=== PATIENT | male | born 1990 | race African-American/Black ===

== ENCOUNTER 2018-01-13 20:09 | Emergency (ER) | payer OTHER ==
--- NOTE | 2018-01-13 20:59 | RAD REPORT ---
EXAM DESCRIPTION: RAD - Knee Left 3 View - 01/13/2018 8:49 pm CLINICAL HISTORY: PAIN COMPARISON: Knee Left 3 view dated 01/09/2015 FINDINGS: No bone or joint abnormality the left knee is detected. If clinical concern for internal d erangement persists, suggest MR imaging followup.
--- NOTE | 2018-01-13 21:05 | EDPHYS ---
Physician Documentation [facility] Name: Jacques Longoria Age: 27 yrs Sex: Male : 1990 Arrival Date: 01/13/2018 Time: 20:15 Bed Treatment Private MD: Elizabeth Johnson H ED Physician Jose Roberto Medina HPI: 01/13 21:11 This 27 yrs old Black Male presents to ER via Ambulatory with complaints of Knee Injury.snw 21:11 Onset: The symptoms/episode began/occurred suddenly. The patient has not experienced snw similar symptoms in the past. The patient has not recently seen a physician. Playing soccer and felt a pop and then pain to medial and posterior left knee, feels like it may give out. Historical: - Allergies: 20:26 No Known Allergies; aj - Home Meds: 20:26 Adipex-P oral oral [Active]; aj - PMHx: 20:26 None; aj - PSHx: 20:26 None; aj - Immunization history:: Adult Immunizations up to date. - Social history:: Smoking status: Patient/guardian denies using tobacco. - Ebola Screening: : Patient negative for fever greater than or equal to 101.5 degrees Fahrenheit, and additional compatible Ebola Virus Disease symptoms Patient denies exposure to infectious person Patient denies travel to an Ebola-affected area in the 21 days before illness onset No symptoms or risks identified at this time. ROS: 21:11 Constitutional: Negative for fever, chills, and weight loss, Eyes: Negative for injury, snw pain, redness, and discharge, ENT: Negative for injury, pain, and discharge, Neck: Negative for injury, pain, and swelling, Cardiovascular: Negative for chest pain, palpitations, and edema, Respiratory: Negative for shortness of breath, cough, wheezing, and pleuritic chest pain, Abdomen/GI: Negative for abdominal pain, nausea, vomiting, diarrhea, and constipation, Back: Negative for injury and pain, : Negative for injury, bleeding, discharge, and swelling, Skin: Negative for injury, rash, and discoloration, Neuro: Negative for headache, weakness, numbness, tingling, and seizure, Psych: Negative for depression, anxiety, suicide ideation, homicidal ideation, and hallucinations. 21:11 MS/extremity: Positive for injury or acute deformity, pain, tenderness, of the left knee. Exam: 21:09 Constitutional: This is a well developed, well nourished patient who is awake, alert, snw and in no acute distress. Head/Face: Normocephalic, atraumatic. Eyes: Pupils equal round and reactive to light, extra-ocular motions intact. Lids and lashes normal. Conjunctiva and sclera are non-icteric and not injected. Cornea within normal limits. Periorbital areas with no swelling, redness, or edema. ENT: Nares patent. No nasal discharge, no septal abnormalities noted. Tympanic membranes are normal and external auditory canals are clear. Oropharynx with no redness, swelling, or masses, exudates, or evidence of obstruction, uvula midline. Mucous membranes moist. Neck: Trachea midline, no thyromegaly or masses palpated, and no cervical lymphadenopathy. Supple, full range of motion without nuchal rigidity, or vertebral point tenderness. No Meningismus. Chest/axilla: Normal chest wall appearance and motion. Nontender with no deformity. No lesions are appreciated. Cardiovascular: Regular rate and rhythm with a normal S1 and S2. No gallops, murmurs, or rubs. Normal PMI, no JVD. No pulse deficits. Respiratory: Lungs have equal breath sounds bilaterally, clear to auscultation and percussion. No rales, rhonchi or wheezes noted. No increased work of breathing, no retractions or nasal flaring. Abdomen/GI: Soft, non-tender, with normal bowel sounds. No distension or tympany. No guarding or rebound. No evidence of tenderness throughout. Back: No spinal tenderness. No costovertebral tenderness. Full range of motion. Skin: Warm, dry with normal turgor. Normal color with no rashes, no lesions, and no evidence of cellulitis. Neuro: Awake and alert, GCS 15, oriented to person, place, time, and situation. Cranial nerves II-XII grossly intact. Motor strength 5/5 in all extremities. Sensory grossly intact. Cerebellar exam normal. Normal gait. Psych: Awake, alert, with orientation to person, place and time. Behavior, mood, and affect are within normal limits. 21:09 Musculoskeletal/extremity: Extremities: grossly normal except: noted in the left knee: pain, ROM: limited active range of motion due to pain, Circulation is intact in all extremities. Sensation intact. Vital Signs: 20:26 BP 124 / 81; Pulse 87; Resp 19; Temp 97.4; Pulse Ox 99% on R/A; Weight 108.86 kg; aj Height 5 ft. 11 in. (180.34 cm); 20:26 Body Mass Index 33.47 (108.86 kg, 180.34 cm) aj MDM: 20:50 Patient medically screened. snw 21:10 Data reviewed: vital signs, nurses notes. Data interpreted: Pulse oximetry: on room air snw is 99 %. Interpretation: normal. Counseling: I had a detailed discussion with the patient and/or guardian regarding: the historical points, exam findings, and any diagnostic results supporting the discharge/admit diagnosis, the presence of at least one elevated blood pressure reading (>120/80) during this emergency department visit, radiology results, the need for outpatient follow up, to return to the emergency department if symptoms worsen or persist or if there are any questions or concerns that arise at home. Special discussion: I have referred the patient to see his PCP for further evaluation of high blood pressure. Based on the history and exam findings, there is no indication for further emergent testing or inpatient evaluation. I discussed with the patient/guardian the need to see the orthopedic surgeon for further evaluation of the symptoms. I discussed with the patient/guardian the need to see the primary care provider for further evaluation of the symptoms. 01/13 20:28 Order name: XRAY Knee LEFT 3 view; Complete Time: 21:03 aj 01/13 20:51 Order name: Knee Immobilizer; Complete Time: 21:28 snw Administered Medications: 21:28 Drug: [place] 5 mg-325 mg 1 tabs Route: PO; aj1 21:30 Follow up: Response: No adverse reaction aj1 Disposition: 01/13/18 21:05 Discharged to Home. Impression: Internal derangement of knee. - Condition is Stable. - Discharge Instructions: Knee Immobilizer, Knee Sprain, Cryotherapy, Heat Therapy. - Prescriptions for Diclofenac Sodium 75 mg Oral Tablet Sustained Release - take 1 tablet by ORAL route 2 times per day; 30 tablet. orphenadrine citrate 100 mg Oral Tablet Sustained Release - take 1 tablet by ORAL route 2 times per day As needed; 20 tablet. - Medication Reconciliation Form, Thank You Letter, Antibiotic Education, Prescription Opioid Use form. - Follow up: Prashanth Blanc MD; When: 2 - 3 days; Reason: Recheck today's complaints, Continuance of care, Re-evaluation by your physician. - Problem is new. - Symptoms are unchanged. Addendum: 01/16/2018 19:06 Co-signature as Attending Physician, Jose Roberto Medina MD. g s Signatures: Dispatcher [employer] EDLori Cheung RN VAMSI aj1 Keyanna Arango RN RN aj Milly Karimi, BARK SPUDDER-C BARK SPUDDER-Csnw Jose Roberto Medina MD MD Corrections: (The following items were deleted from the chart) 01/13 21:30 21:05 01/13/2018 21:05 Discharged to Home. Impression: Internal derangement of knee. aj1 Condition is Stable. Forms are Medication Reconciliation Form, Thank You Letter, Antibiotic Education, Prescription Opioid Use. Follow up: Dr. Prashanth Blanc; When: 2 - 3 days; Reason: Recheck today's complaints, Continuance of care, Re-evaluation by your physician. Problem is new. Symptoms are unchanged. snw
--- NOTE | 2018-01-13 21:05 | ER ---
Nurse's Notes [facility] Name: Jacques Longoria Age: 27 yrs Sex: Male : 1990 Arrival Date: 01/13/2018 Time: 20:15 Bed Treatment Private MD: Elizabeth Johnson H Diagnosis: Internal derangement of knee Presentation: 01/13 20:24 Presenting complaint: Patient states: Left knee pain that started 2 hours ICD 9 CODER when aj patient was playing soccer. Reports feeling a pop towards the medial side of left knee. Reports pain when ambulating. Transition of care: patient was not received from another setting of care. Onset of symptoms was January 13, 2018. Risk Assessment: Do you want to hurt yourself or someone else? Patient reports no desire to harm self or others. Initial Sepsis Screen: Does the patient meet any 2 criteria? No. Patient's initial sepsis screen is negative. Does the patient have a suspected source of infection? No. Patient's initial sepsis screen is negative. Care prior to arrival: None. 20:24 Method Of Arrival: Ambulatory 20:24 Acuity: NELSON 4 aj Triage Assessment: 20:26 General: Appears in no apparent distress. comfortable, Behavior is calm, cooperative, aj appropriate for age. Pain: Complains of pain in left knee. Neuro: Level of Consciousness is awake, alert, obeys commands, Oriented to person, place, time, situation, Appropriate for age. Respiratory: Airway is patent Respiratory effort is even, unlabored, Respiratory pattern is regular, symmetrical. Derm: Skin Skin is pink, warm \T\ dry. normal. Musculoskeletal: Reports pain in left knee. 21:29 Injury Description: Patient states that he injured while playing soccer. aj1 Historical: - Allergies: 20:26 No Known Allergies; aj - Home Meds: 20:26 Adipex-P oral oral [Active]; aj - PMHx: 20:26 None; aj - PSHx: 20:26 None; aj - Immunization history:: Adult Immunizations up to date. - Social history:: Smoking status: Patient/guardian denies using tobacco. - Ebola Screening: : Patient negative for fever greater than or equal to 101.5 degrees Fahrenheit, and additional compatible Ebola Virus Disease symptoms Patient denies exposure to infectious person Patient denies travel to an Ebola-affected area in the 21 days before illness onset No symptoms or risks identified at this time. Screenin:59 Abuse screen: Denies threats or abuse. Denies injuries from another. Nutritional aj1 screening: No deficits noted. Tuberculosis screening: No symptoms or risk factors identified. 21:29 Fall Risk None identified. aj1 Assessment: 20:59 General: Appears in no apparent distress. uncomfortable, Behavior is calm, cooperative, aj1 appropriate for age. Pain: Complains of pain in left knee. Neuro: Level of Consciousness is awake, alert, obeys commands. Cardiovascular: Patient's skin is warm and dry. Respiratory: Airway is patent Respiratory effort is even, unlabored, Respiratory pattern is regular, symmetrical. GI: No signs and/or symptoms were reported involving the gastrointestinal system. : No signs and/or symptoms were reported regarding the genitourinary system. EENT: No signs and/or symptoms were reported regarding the EENT system. Derm: No signs and/or symptoms reported regarding the dermatologic system. Skin is pink, warm \T\ dry. normal. Musculoskeletal: Reports pain in left knee. Vital Signs: 20:26 BP 124 / 81; Pulse 87; Resp 19; Temp 97.4; Pulse Ox 99% on R/A; Weight 108.86 kg; aj Height 5 ft. 11 in. (180.34 cm); 20:26 Body Mass Index 33.47 (108.86 kg, 180.34 cm) aj ED Course: 20:15 Patient arrived in ED. am2 20:15 Elizabeth Johnson DO is Private Physician. am2 20:25 Triage completed. aj 20:28 Arm band placed on left wrist. Patient placed in waiting room, Patient notified of wait aj time. X-ray ordered. 20:49 XRAY Knee LEFT 3 view In Process Unspecified. EDMS 20:50 Milly Karimi [facility]-C [facility]. snw 20:50 Jose Roberto Medina MD is Attending Physician. snw 20:53 Lori Hernandez, VAMSI is Primary Nurse. aj1 20:59 Patient has correct armband on for positive identification. aj1 20:59 No provider procedures requiring assistance completed. aj1 21:04 Prashanth Blanc MD is Referral Physician. snw 21:29 Patient did not have IV access during this emergency room visit. Knee immobilizer aj1 applied on left knee. Administered Medications: 21:28 Drug: [place] 5 mg-325 mg 1 tabs Route: PO; aj1 21:30 Follow up: Response: No adverse reaction aj1 Outcome: 21:05 Discharge ordered by . too 21: Discharged to home ambulatory. aj1 21: Condition: good 21:29 Discharge instructions given to patient, Instructed on discharge instructions, follow up and referral plans. medication usage, Demonstrated understanding of instructions, follow-up care, medications, Prescriptions given X 1. 21:30 Patient left the ED. aj1 Signatures: Dispatcher [employer] EDMS Lori Hernandez RN RN ajKeyanna Larios RN RN aj Milly Karimi, ALIGNER BARREL AND RECEIVER-C ALIGNER BARREL AND RECEIVER-Csnw Keyanna De Dios
[2018-01-13] MEDS ORDERED: HYDROCODONE/APAP 5/325 MG TAB ONE (21:21)
== END 2018-01-13 21:30 | disposition home or self-care (01) ==
LOC: ER 20:09
DX: M23.92 Unspecified internal derangement of left knee (principal)
CPT/HCPCS: 99284

== ENCOUNTER → 2023-04-09 | Emergency (ER) | payer SELFPAY ==
[~2023-04-09] MED LIST: ALBUTEROL 2.5 MG/3 ML NEB SOL ONE; BENZONATATE 100 MG CAP PO ONE; IPRATROPIUM BROM 0.5MG/2.5ML ONE; predniSONE 20 MG TAB ONE
[2023-04-09 02:58] LABS: Absolute Lymphocytes (CBC) 1.3 K/uL (0.7-4.9); Hematocrit 34.7 % (39.6-49.0); Lymphocytes % 11.1 % (15.3-44.8); MCV 86.6 fL (80-100); MPV 8.5 fL (7.6-11.3); Platelets 331 thou/uL (152-406); RBC Red Blood Cell Count 4.01 M/uL (4.33-5.43)
[2023-04-09 03:07] LABS: Albumin 2.8 g/dL (3.4-5.0); Bilirubin Total 1.4 mg/dL (0.2-1.0); Potassium 3.3 mEq/L (3.5-5.1); Protein, Total 8.1 g/dL (6.4-8.2)
--- NOTE | 2023-04-09 04:17 | EDPHYS ---
Physician Documentation [facility] Name: Jacques Longoria Age: 33 yrs Sex: Male : 1990 Arrival Date: 04/09/2023 Time: 02:00 Bed 18 Private MD: ED Physician Rusty Barr HPI: 04/09 02:22 This 33 yrs old Black Male presents to ER via Ambulatory with complaints of Chest ec2 Congestion, Drainage, Bad taste in mouth. 02:22 Patient arrives today for evaluation of URI signs and symptoms. Patient with recent ec2 diagnosis of influenza last week. States that he has a history of asthma, has been using his albuterol inhaler with some improvement in symptoms. Patient with some decreased p.o. intake, some nausea, no diarrhea symptoms. Patient reports no abdominal pain. Reports some shortness of breath as well. No recent steroid use, no recent antibiotic use.. Historical: - Allergies: 02:14 No Known Allergies; jb4 - PMHx: 02:14 Asthma; jb4 - PSHx: 02:14 None; jb4 - Immunization history:: Adult Immunizations up to date. - Social history:: Smoking status: Patient denies any tobacco usage or history of. ROS: 02:22 Constitutional: as per hpi ec2 Exam: 02:22 Constitutional: GEN: NAD Head: atraumatic Eyes: EOMI Ears: External ears are ec2 normal. CV: Tachycardia LUNGS: no respiratory distress, scattered wheeze noted. ABD: non-distended SKIN: no evidence of rashes MSK: no evidence of trauma NEURO: moves all extremities equally Vital Signs: 02:11 BP 128 / 93; Pulse 112; Resp 16; Temp 97.6(O); Pulse Ox 96% on R/A; Weight 122.47 kg jb4 (R); Height 5 ft. 10 in. ; Pain 0/10; 03:09 BP 149 / 94; Pulse 113; Resp 17; Pulse Ox 95% ; jj7 04:02 Pulse 106; Pulse Ox 96% ; ec2 04:15 BP 124 / 96; Pulse 103; Resp 17; Pulse Ox 97% ; Pain 0/10; jj7 02:11 Body Mass Index 38.74 (122.47 kg, 177.8 cm) jb4 02:11 Pain Scale: Adult jb4 04:15 Pain Scale: Adult jj7 MDM: 02:15 Patient medically screened. ec2 02:22 Data reviewed: vital signs. ED course: Patient with history of asthma arrives today for ec2 URI symptoms. Examination remarkable for nontoxic individual slightly tachycardic with scattered wheezes noted. Will obtain lab work, chest x-ray, treat the patient symptoms with DuoNeb and steroids. Suspect asthma exacerbation versus possible residual viral symptoms. . 03:08 ED course: Cbc and metabolic profile reassuring. . ec2 04:01 ED course: Chest x-ray independently reviewed and interpreted by me, shows no acute ec2 intrathoracic process.. 04:16 ED course: On reassessment patient is well-appearing in no acute distress. Will start ec2 the patient on azithromycin and steroids treat the patient's asthma exacerbation and follow-up with primary care doctor. Return precautions given.. 02 02:21 Order name: CBC with Diff; Complete Time: 03:08 ec2 04/09 02:21 Order name: CMP; Complete Time: 03:08 ec2 04/09 02:21 Order name: CXR XRAY ec2 Administered Medications: 02:35 Drug: DuoNeb Nebulize (3:1) (2.5 mg - 0.5 mg) 3 ml Nebulizer once Route: Nebulizer; jj7 04:26 Follow up: Response: No adverse reaction jj7 02:35 Drug: predniSONE PO 40 mg PO once Route: PO; jj7 04:26 Follow up: Response: No adverse reaction jj7 03:21 Drug: Tessalon Perle PO 100 mg PO once Route: PO; jj7 04:26 Follow up: Response: No adverse reaction jj7 Disposition Summary: 04/09/23 04:16 Discharge Ordered Notes: Location: Home ec2 Condition: Stable ec2 Diagnosis - Viral infection, unspecified ec2 - Mild intermittent asthma with (acute) exacerbation ec2 Followup: ec2 - With: Private Physician - When: - Reason: Re-evaluation by your physician Discharge Instructions: - Discharge Summary Sheet ec2 - Asthma Attack Prevention, Adult ec2 - Viral Illness, Adult ec2 Forms: - Medication Reconciliation Form ec2 - Thank You Letter ec2 - Antibiotic Education ec2 - Prescription Opioid Use ec2 - Patient Portal Instructions ec2 - Leadership Thank You Letter ec2 Prescriptions: - Zithromax Z-Jomar 250 mg Oral Tablet - take 1 tablet ORAL route as directed for 5 days Day 1 - take two (2) tablets ec2 one time. Day 2, 3, 4 , 5 take one (1) tablet once daily.; 6 tablet; Refills: 0, Product Selection Permitted - Prednisone 20 mg Oral Tablet - take 2 tablets ORAL route once daily for 5 days; 10 tablet; Refills: 0, Product ec2 Selection Permitted Signatures: Dispatcher [employer] Jorge Gerard RN RN jb4 Yessi Hernandez RN RN jj7 Rusty Barr MD MD ec2
--- NOTE | 2023-04-09 04:17 | ER ---
Nurse's Notes [facility] Name: Jacques Lonogria Age: 33 yrs Sex: Male : 1990 Arrival Date: 04/09/2023 Time: 02:00 Bed 18 Private MD: Diagnosis: Viral infection, unspecified;Mild intermittent asthma with (acute) exacerbation Presentation: 04/09 02:11 Chief complaint: Patient states: I had the flu last week and now I am having congestion jb4 that started yesterday evening, I have developed a cough, and started coughing up flem with a rancid taste. Walking has also been more taxing lately. Coronavirus screen: At this time, the client does not indicate any symptoms associated with coronavirus-19. Ebola Screen: No symptoms or risks identified at this time. Initial Sepsis Screen: Does the patient meet any 2 criteria? HR > 90 bpm. Yes Does the patient have a suspected source of infection? Yes: Productive cough/pneumonia. Risk Assessment: Do you want to hurt yourself or someone else? Patient reports no desire to harm self or others. Onset of symptoms was April 07, 2023. Transition of care: patient was not received from another setting of care. 02:11 Method Of Arrival: Ambulatory jb4 02:11 Acuity: NELSON 3 jb4 Historical: - Allergies: 02:14 No Known Allergies; jb4 - PMHx: 02:14 Asthma; jb4 - PSHx: 02:14 None; jb4 - Immunization history:: Adult Immunizations up to date. - Social history:: Smoking status: Patient denies any tobacco usage or history of. Screenin:23 [facility] ED Fall Risk Assessment (Adult) History of falling in the last 3 months, jj7 including since admission No falls in past 3 months (0 pts) Confusion or Disorientation No (0 pts) Intoxicated or Sedated No (0 pts) Impaired Gait No (0 pts) Mobility Assist Device Used No (0 pt) Altered Elimination No (0 pt) Score/Fall Risk Level 0 - 2 = Low Risk Oriented to surroundings, Maintained a safe environment, Educated pt \T\ family on fall prevention, incl call for assistance when getting out of bed. Abuse screen: Denies threats or abuse. Nutritional screening: No deficits noted. Tuberculosis screening: No symptoms or risk factors identified. Assessment: 02:23 General: Appears in no apparent distress. comfortable, Behavior is calm, cooperative, jj7 appropriate for age. Respiratory: Airway is patent Trachea midline Respiratory effort is even, unlabored, Respiratory pattern is regular, Breath sounds with wheezes in left upper lobe and left lower lobe. Vital Signs: 02:11 BP 128 / 93; Pulse 112; Resp 16; Temp 97.6(O); Pulse Ox 96% on R/A; Weight 122.47 kg jb4 (R); Height 5 ft. 10 in. ; Pain 0/10; 03:09 BP 149 / 94; Pulse 113; Resp 17; Pulse Ox 95% ; jj7 04:02 Pulse 106; Pulse Ox 96% ; ec2 04:15 BP 124 / 96; Pulse 103; Resp 17; Pulse Ox 97% ; Pain 0/10; jj7 02:11 Body Mass Index 38.74 (122.47 kg, 177.8 cm) jb4 02:11 Pain Scale: Adult jb4 04:15 Pain Scale: Adult jj7 ED Course: 02:06 Patient arrived in ED. gm2 02:07 Rusty Barr MD is Attending Physician. ec2 02:14 Triage completed. jb4 02:14 Arm band placed on right wrist. jb4 02:16 Yessi Hernandez, VAMSI is Primary Nurse. jj7 02:23 Patient has correct armband on for positive identification. Bed in low position. Call jj7 light in reach. 02:23 No provider procedures requiring assistance completed. jj7 02:35 CMP Sent. jj7 02:35 CBC with Diff Sent. jj7 02:42 Inserted saline lock: 22 gauge in right forearm, using aseptic technique. Blood oe collected. 04:01 CXR XRAY In Process Unspecified. EDMS 04:27 IV discontinued, intact, bleeding controlled, No redness/swelling at site. Pressure jj7 dressing applied. Administered Medications: 02:35 Drug: DuoNeb Nebulize (3:1) (2.5 mg - 0.5 mg) 3 ml Nebulizer once Route: Nebulizer; jj7 04:26 Follow up: Response: No adverse reaction jj7 02:35 Drug: predniSONE PO 40 mg PO once Route: PO; jj7 04:26 Follow up: Response: No adverse reaction jj7 03:21 Drug: Tessalon Perle PO 100 mg PO once Route: PO; jj7 04:26 Follow up: Response: No adverse reaction jj7 Medication: 02:23 VIS not applicable for this client. jj7 Outcome: 04:16 Discharge ordered by . ec2 04:27 Discharged to home ambulatory, jj7 04:27 Condition: good 04:27 Discharge instructions given to patient, Instructed on discharge instructions, medication usage, Demonstrated understanding of instructions, medications, Prescriptions given X 2, 04:27 Patient left the ED. jj7 Signatures: Dispatcher [employer] EDMS Jorge Chapin, RN RN jb4 Junior Hua Juwairiyah, RN RN jj7 Rusty Barr MD MD ec2 Brea Leonard 2
[2023-04-09 04:39] VITALS: BP 124/96; TEMP 97.6; O2SAT 97
--- NOTE | 2023-04-09 13:41 | RAD REPORT ---
EXAM DESCRIPTION: RAD - Chest Single View - 04/09/2023 4:00 am CLINICAL HISTORY: COUGH COMPARISON: None TECHNIQUE: Single AP view of the chest. FINDINGS: Lung volumes diminished. Mild bronchovascular crowding. Cardiac silhouette is normal in size. No pneumothorax. No large pleural effusion. No focal consolidation. No acute bony finding. IMPRESSION: 1. No acute cardiopulmonary findings. 2. Mild bronchovascular crowding. Electronically signed by: Víctor Cortes MD 04/09/2023 04:35 AM RAILROAD CAR INSPECTOR Due to temporary technical issues with the PACS/Fluency reporting system, reports are being signed by the in house radiologists without review as a courtesy to insure prompt reporting. The interpreting radiologist is fully responsible for the content of the report.
== END ==
LOC: ER 02:00
DX: J45.21 Mild intermittent asthma with (acute) exacerbation (principal); B34.9 Viral infection, unspecified
CPT/HCPCS: 36415; 71045; 80053; 85025; J7512; J7613; J7644